=== PATIENT | male | born 1980 | race Caucasian/White ===

== ENCOUNTER 2016-09-11 06:43 | Day surgery (SDC) | payer OTHER ==
[~2016-09-11] VITALS: Ht 177.8 cm; Wt 75.3 kg
[2016-09-11] VITALS (11 sets, daily range): BP systolic 112–139; BP diastolic 71–91; PULSE 61–87; RESP 11–18; O2SAT 97–100
[~2016-09-11 06:43] MED LIST: Dexamethasone 10 mg/mL Inj IV ONE; Dexamethasone Inj 20 MG in Dextrose 5%-Pha MIX 50 ML IV ONE; HYDR-4003 PO; Lactated Ringer's 1,000 ML IV ONE
[2016-09-11] MEDS ORDERED: Propofol 10,000 mCg/mL 20 mL Inj ONE (06:44)
[2016-09-11] MEDS ORDERED: Ondansetron 2 mg/mL 2 mL Inj ONE (06:44)
--- NOTE | 2016-09-11 08:20 | PCM.HPANE ---
Patient Data Surgeon Admitting Provider: Attending Provider:Hardy Medina MD Primary Care Physician:Pranav Powers DO Other Provider:[facility] Reason for Visit Chronic Sinustits Ht/WT & BMI Height (Feet): 5 Height (Inches): 10.00 Weight (Kilograms): 75.3 Body Mass Index 23.00 Allergies Coded Allergies: codeine (Verified Allergy, Severe, UNKNOWN, 09/07/16) shellfish derived (Verified Allergy, Severe, Anaphylaxis, 09/07/16) propoxyphene (Verified Allergy, Unknown, UNKNOWN, 09/07/16) fentanyl (Verified Adverse Reaction, Severe, vomiting, 09/07/16) Uncoded Allergies: NAPSYLATE (Allergy, Unknown, UNKNOWN, 09/07/16) Past Anesthesia History Anesthesia History: Denies:: Abnormal Airway, Anesthesia Reactions, Difficult Intubation, Fam Anesthesia Reaction, Fam Malignant Hypertherm, Malignant Hyperthermia Diabetes History Hx Diabetes?: No MRSA MRSA: No Medications Home Meds Incl Beta Efrain: No Reported Medications Hydrocodone-Acetaminophen 5-325 mg 1 Each Tablet1 Tablet PO Q6H PRN For Pain Ref 0 09/07/16 Discontinued Reported Medications Hydrocodone/Acetaminophen (Vicodin Es 7.5-300 mg Tablet)1 Each Tablet1 Each PO Q6 PRN For Pain Ref 0 06/01/[address] 40 Mg Tablet.dr40 Mg PO BID 30 Days Ref 0 06/01/14 Ranitidine 150 Mg [id number] Mg PO BID 30 Days Ref 0 06/01/14 History History of ENT Problems?: Yes HEENT History: Positive for:: Sinus Problem (CHRONIC SINUSITIS=CURRENT PROBLEM ) TMJ Denies:: Abnormal Airway Difficult Intubation Dysphagia Hearing Problem Hx of Heart Problems?: No Cardiovascular History: Denies:: AICD Atrial Fibrillation Chest Pain Hypertension Pacemaker Valvular Heart Disease Hx of Respiratory Problem?: No Respiratory History: Denies:: Asthma COPD Cough Hemoptysis Pneumonia Tuberculosis Use of C-PAP Machine Hx Neurologic Problems?: Yes Neurological History: Positive for:: Dizziness (DIZZINESS) Headaches Denies:: CVA Other Neurological Pertinent: 08/2015 ADM TO ED/TRANSF TO [facility] W/ DX OF SUBDURAL HEMATOMA THAT WAS EVENTUALLY RU;LED OUT---ABNL MRI R/T SINUS ISSUES Hx of GI Problems?: Yes Gastrointestinal History: Positive for:: Gastroesphageal Reflux Hiatal Hernia Denies:: Cirrhosis Diverticulitis Rectal Bleeding Hx of Problems?: No Male Hx: Denies:: Prostate Problems Scrotal Mass Testicular Surgery Skin History: Denies:: History Skin Disorders? Pressure Ulcers Hx Musculoskeletal Problems?: Yes Musculoskeletal History: Positive for:: Musculoskeletal Trauma (S/P RT LEG RPR ,SHOULDER RPR X7) Osteoarthritis Denies:: Back Injury (C/OF LOWER BACK PAIN) Hx of Psycho/Social Problems?: Yes Psycho Social History: Positive for:: Anxiety Denies:: Hx Depression Hx Surgeries?: Yes ( SHOULDER SURGERY X7,CTR,RIGHT LEG RPR,??SPINE) Hx Any Other Health Problems?: Yes Other History: Positive for:: Hospitalization Denies:: Cancer Endocrine Disease Thyroid Disease History Blood Transfusions: Positive for:: Accept Blood Products? Denies:: Blood Transfusions Hx Diabetes: No Hx Alcohol Use: NoHx Substance Use: No Smoking Status: Never Smoker Have You Smoked inLast 12 mo: No Stop/Bang S-Snoring: Do You Snore Loudly: No T-Tired: feel tired, fatigued: No O-Obsered: Observed not breath: No P-Blood Pressure: treated: No B- Body Mass Index > 35 kg/m2: No A- Age over 50: No N- Neck Large Circumference: No G- Gender Male: Yes EBER Total Score: 1 EBER Risk Assessment: Low Risk, <3 Yes Risk Assessment Category Category 1A: Patient has history of documented sleep apnea, and HAS NOT received any narcotic, sedative or anesthesia administration during this stay. Category 1B: Patient has history of documented sleep apnea, and HAS received any narcotic , sedative or anesthesia administration during this stay Category 2: Patient has SUSPECTED Obstructive Sleep Apnea, and HAS received any narcotic , sedative or anesthesia administration during this stay. Category 3: Patient has SUSPECTED Obstructive Sleep Apnea and HAS NOT received narcotic, sedative or anesthesia administration during this stay. Category 4: Outpatient in Procedural Areas with known sleep apnea or who screen positive for High Risk via the STOP/BANG questionnaire. Exam Exam Vital Signs Vital Signs Date Time Temp Pulse Resp B/P Pulse Ox O2 Delivery O2 Flow Rate FiO2 09/11/16 07:37 36.5 74 18 129/77 100 Room Air General Appearance: Alert, Oriented X3, Cooperative, No Acute Distress HEENT/AIRWAY: MP 2 Lungs: Normal Air Movement Heart: Exam Unremarkable Meds/Labs/Diagnostics Admission Meds Current Medications Lactated Ringer's 1,000 ml @ 120 mls/hr Q8H20M ONCE IV Last administered on 06:45; Start 09/11/16 at 05:00; Stop 09/11/16 at 13:19 Dexamethasone Sodium Phosphate/ Dextrose/Water (Decadron Inj/ [facility] To Mix) 52 ml @ 104 mls/hr PREOP ONCE IV Last administered on 09/11/16 07:58; Start 09/11/16 at 06:00; Stop 09/11/16 at 06:29; Status DC Plan Impression Patient chart reviewed, patient interviewed and anesthestic plan with risks, benefits, and alternatives discussed, and informed consent obtained. NPO Status: 6PM ASA Physical Status: ASA2 Mod Systemic Disease Anesthetic Plan: GA Bene/Risks/Altern/Consents: Yes HP Complete Prior to Induction: Yes Mynor Madrigal MD Sep 11, 2016 08:20
[2016-09-11] MEDS ORDERED: Lidocaine 2%-Epi 1:100,000 20 mL Inj INFILTRATE ONE (08:33)
[2016-09-11] MEDS ORDERED: Lactated Ringer's 500 ML IV PRN (08:54)
[2016-09-11] MEDS ORDERED: Lactated Ringer's 1,000 ML IV SCH (08:54)
[2016-09-11] MEDS ORDERED: Ondansetron 2 mg/mL 2 mL Inj IVPUSH PRN (08:55)
[2016-09-11] MEDS ORDERED: EPHEDrine Sulfate 50 mg/mL Inj IVPUSH PRN (08:55)
[2016-09-11] MEDS ORDERED: MetoCLOpramide 5 mg/mL 2 mL Inj IVPUSH PRN (08:55)
[2016-09-11] MEDS ORDERED: hydrALAZINE 20 mg/mL Inj IVPUSH PRN (08:55)
[2016-09-11] MEDS ORDERED: Labetalol 5 mg/mL 4 mL Inj IV PRN (08:55)
[2016-09-11] MEDS ORDERED: Phenylephrine 10,000 mCg/mL Inj IVPUSH PRN (08:55)
[2016-09-11] MEDS ORDERED: Atropine 0.4 mg/mL Inj IVPUSH PRN (08:55)
[2016-09-11] MEDS ORDERED: Dexamethasone 4 mg/mL Inj IVPUSH PRN (08:55)
[2016-09-11] MEDS ORDERED: HYDROmorphone 1 mg/mL Inj IVPUSH PRN (08:55)
--- NOTE | 2016-09-11 09:29 | PCM.ANEP1 ---
Post Anesthesia Phase 1 PACU Phase 1 Assessment Vital Signs Vital Signs Date Time Temp Pulse Resp B/P Pulse Ox O2 Delivery O2 Flow Rate FiO2 09/11/16 09:25 36.1 70 13 121/74 100 Simple Mask 8 09/11/16 09:20 87 17 119/75 98 Simple Mask 8 09/11/16 09:17 36.2 87 16 112/91 100 Simple Mask 8 09/11/16 07:37 36.5 74 18 129/77 100 Room Air Anesthetic Administered: GA Level of Alertness: Sleeping, hard to arouse Pain: No Nausea or Vomiting: No Oxygen Delivery: Simple Mask Lungs: Normal Air Movement Mynor Madrigal MD Sep 11, 2016 09:29
--- NOTE | 2016-09-11 10:01 | PCM.ANEP2 ---
Post Anesthesia Evaluation ASA/CMS Post Anesthesia Date of Service: Sep 11, 2016 VS in Patient's Normal Range?: Yes Resp Stable; Airway Patent?: Yes CV Function & Hydration Stable: Yes Mental Status Recovered?: Yes Pain control Satisfactory?: Yes N/V Control Satisfactory?: Yes Mynor Madrigal MD Sep 11, 2016 10:01
--- NOTE | 2016-09-11 10:40 | OP ---
[address] [address] OPERATIVE REPORT PATIENT: FARHAD EISENBERG : 1980 MR#: [id number] ADMIT: 09/11/2016 JOB ID: [id number] DATE OF SURGERY: 09/11/2016 PREOPERATIVE DIAGNOSIS(ES): Chronic pansinusitis. POSTOPERATIVE DIAGNOSIS(ES): Chronic pansinusitis. PROCEDURE: Bilateral ethmoid, maxillary and frontal sinusotomies. SURGEON: Hardy Medina MD HISTORY/INDICATIONS: A 28-year-old gentleman with chronic and recurrent acute sinusitis responsive to medical therapy, but rapidly recurring. Preoperative CT showed disease in the frontals bilaterally, ethmoids and maxillary bilaterally. PROCEDURE/FINDINGS: The patient was taken to the operative room, placed in supine position on the operating table. LMA anesthesia was induced. From the prep table, the uncinate process, middle turbinate and ethmoidal bulla are injected with 2% lidocaine 1:100,000 epinephrine. The nose then packed with Afrin on cotton. Face was then prepped and draped in a sterile fashion. The packing was removed. A 0 degree scope was inserted on the right side. There were polyps in the middle meatus. These were removed and submitted to pathology. Then, with a microdebrider and backbiting instrument, the uncinate process was taken down, exposing the maxillary outflow tract. With the backbiter and microdebrider, a large maxillary antrostomy was performed. Findings of polypoid disease on the medial wall. This was debulked. The ethmoidal bulla is opened. The dissection continues into the nasofrontal recess until the nasofrontal duct is widely open and readily cannulated. Dissection continues through the basal lamella and the posterior ethmoids, again finding polypoid thickening of the mucosa. Once all areas were adequately opened, a folded Merocel pad was placed and saturated with Afrin. The same procedure was carried out on the left. Similar findings in terms of diffuse polypoid thickening of the mucosa. At completion of the procedure, the patient is awakened. LMA was removed. Transported to the recovery room in good condition. ESTIMATED BLOOD LOSS: 25 cc. PATHOLOGIC SPECIMEN: The right nasal polyps were submitted. COMPLICATIONS: None.
--- NOTE | 2016-09-15 10:08 | PATH ---
SURGICAL PATHOLOGY Attending Physician:Hardy Medina M.D. CASE STATUS: Signed Out PATIENT NAME: FARHAD EISENBERG PID: [id number] : 1980 DATE COLLECTED:09/11/2016 16:30 SPECIMEN: Nasal Mucosa, Biopsy CLINICAL HISTORY: Chronic Sinusitis 1).RIGHT NASAL POLYP FINAL DIAGNOSIS: 1.SPECIMEN DESIGNATED RIGHT NASAL POLYP: FRAGMENT OF NASAL MUCOSA WITH MILD CHRONIC INFLAMMATION, NEGATIVE FOR ATYPIA. MUCOID MATERIAL CONTAINING FRAGMENTS OF BENIGN NASAL MUCOSAL EPITHELIUM. ICD10 CODE J33.9 GROSS DESCRIPTION: The specimen is received in one formalin filled container labeled with the patient's name, sublabeled "right nasal polyp" and consists of a 0.6 x 0.4 x 0.4 CM portion of tissue which is entirely submitted in one cassette. 09/11/2016 DAC MICRO DESCRIPTION: See diagnosis. ICD-9 CODES: CPT CODES: 84738 Electronically Signed Out Fercho May MD [facility] [address], [place] [address] Technical component performed at [facility], [facility] [address], [place], [address]
== END 2016-09-11 23:59 | disposition home or self-care (01) ==
LOC: SAS 06:43
PROVIDERS: ATTEND Otolaryngology Facial Plastic Surgery
DX: J33.8 Other polyp of sinus (principal); J32.4 Chronic pansinusitis
CPT/HCPCS: 31255; 31256; 31276; 88304; J1100; J2250; J2405; J7120